=== PATIENT | female | born 1995 | race Hispanic/Latino ===

== ENCOUNTER 2019-02-05 02:43 | Emergency (ER) | payer OTHER ==
--- NOTE | 2019-02-05 07:22 | CT ---
PRELIMINARY REPORT/[facility]/EMERGENCY AFTER HOURS PROCEDURE: PROCEDURE INFORMATION: Exam: CT Head Without Contrast Exam date and time: 02/05/2019 2:57 AM Clinical history: 24 years old, female; Injury or trauma; Initial encounter; Abrasion; Forehead; Gertrude ent HX: 24 y/o F presents to ED via EMS transport for head injury S/P fall, with noted ETOH intoxicat ion. Friends informed EMS that PT tripped and fell while walking with them, hitting her head on fall. No l oc. Per friends, PT ingested approx 7 alcoholic beverages TECHNIQUE: Imaging protocol: Computed tomography of the head without contrast. COMPARISON: No relevant prior studies available. FINDINGS: Brain: Normal. Ventricles: Normal. Bones/joints: Normal. Sinuses: Minimal ethmoid sinus disease. Mastoid air cells: Normal as visualized. Soft tissues: Moderate left lateral orbital soft tissue swelling/contusion. IMPRESSION: 1. No acute intracranial abnormality. 2. Moderate left lateral orbital soft tissue swelling/contusion. Thank you for allowing us to participate in the care of your patient. Dictated and Authenticated by: Addison Douglas MD 02/05/2019 3:11 AM Central Time ([place] & [place]) FINAL REPORT EMERGENCY AFTER HOURS CT BRAIN: Date: 02/05/19 IMPRESSION: I agree with the preliminary report provided by Vincent. No acute intracranial abnormality is evident. T here is prominent contusion involving the left frontal scalp and the left supraorbital soft tissues. POS:
== END 2019-02-05 03:22 | disposition home or self-care (01) ==
LOC: ERS 02:43
DX: S00.03XA Contusion of scalp, initial encounter (principal); S00.12XA Contusion of left eyelid and periocular area, initial encounter; S40.812A Abrasion of left upper arm, initial encounter; F10.129 Alcohol abuse with intoxication, unspecified; W18.30XA Fall on same level, unspecified, initial encounter
CPT/HCPCS: 70450